=== PATIENT | female | born 2000 | race Caucasian/White ===

== ENCOUNTER 2019-09-27 22:35 | Emergency (ER) | payer MEDICAID ==
[~2019-09-27] VITALS: Ht 157.5 cm; Wt 63.5 kg
[2019-09-27 22:39] VITALS: Ht 157.5 cm; Wt 63.5 kg
[2019-09-27 23:21] VITALS: BP 132/85
== END 2019-09-27 23:21 | disposition home or self-care (01) ==
LOC: ED 22:35
DX: G62.9 Polyneuropathy, unspecified (principal); G56.00 Carpal tunnel syndrome, unspecified upper limb; J45.909 Unspecified asthma, uncomplicated
CPT/HCPCS: J1885

== ENCOUNTER 2019-12-03 18:09 | Emergency (ER) | payer MEDICAID ==
[~2019-12-03] VITALS: Ht 154.9 cm; Wt 64.9 kg
[2019-12-03 18:14] VITALS: BP 128/73; Ht 154.9 cm; Wt 64.9 kg
== END 2019-12-03 19:15 | disposition home or self-care (01) ==
LOC: ED 18:09
DX: G56.01 Carpal tunnel syndrome, right upper limb (principal); J45.909 Unspecified asthma, uncomplicated

== ENCOUNTER 2020-05-04 14:38 | Emergency (ER) | payer MEDICAID ==
[~2020-05-04] VITALS: Ht 154.9 cm; Wt 63.5 kg
[2020-05-04 15:01] VITALS: Ht 154.9 cm; Wt 63.5 kg
[2020-05-04 18:15] VITALS: BP 117/58
== END 2020-05-04 18:15 | disposition home or self-care (01) ==
LOC: ED 14:38
DX: M94.0 Chondrocostal junction syndrome [Tietze] (principal)
CPT/HCPCS: J1885